=== PATIENT | female | born 1940 | race Caucasian/White ===

== ENCOUNTER 2023-03-20 07:50 | Day surgery (SDC) | payer MEDICARE, OTHER ==
[2023-03-20] MEDS ORDERED: fentaNYL 100 MCG/2 ML SDV ONE (07:53)
[2023-03-20] MEDS ORDERED: Propofol 200 MG/20 ML SDV ONE (07:53)
[2023-03-20] MEDS ORDERED: HYDROmorphone 0.5 MG/0.5 ML Syringe ONE (07:53)
[2023-03-20] MEDS ORDERED: Lactated Ringers 1,000 ML IV SCH (08:00)
[2023-03-20] MEDS ORDERED: Sodium Chloride 0.9% 10 ML Syringe FLUSH PRN (08:00)
[2023-03-20] MEDS ORDERED: Dexamethasone 10 MG/ML SDV IVPUSH ONE (09:05)
[2023-03-20] MEDS ORDERED: Ondansetron 4 MG/2 ML SDV IVPUSH ONE (09:05)
[2023-03-20] MEDS ORDERED: Lidocaine 2% 5 ML SDV ONE (09:05)
[2023-03-20] MEDS ORDERED: Glycopyrrolate 0.2 MG/ML SDV IVPUSH ONE (09:05)
[2023-03-20] MEDS ORDERED: Propofol 200 MG/20 ML SDV IVPUSH ONE (09:05)
[2023-03-20] MEDS ORDERED: Rocuronium 100 MG/10 ML MDV IVPUSH ONE (09:05)
[2023-03-20] MEDS ORDERED: HYDROmorphone 0.5 MG/0.5 ML Syringe IVPUSH ONE (09:05)
[2023-03-20] MEDS ORDERED: Neostigmine Methylsulfate 10 MG/10 ML MDV IVPUSH ONE (09:05)
[2023-03-20] MEDS ORDERED: Bupivacaine 0.5%/EPINEPHrine 1:200,000 30 ML SDV INJECT ONE (09:34)
[2023-03-20 12:10] VITALS: BP 133/68; PULSE 61
== END 2023-03-20 12:40 | disposition home or self-care (01) ==
LOC: LL.SDS 07:50
PROVIDERS: ATTEND Surgery
DX: K80.10 Calculus of gallbladder with chronic cholecystitis without obstruction (principal); I10 Essential (primary) hypertension; E55.9 Vitamin D deficiency, unspecified; Z87.891 Personal history of nicotine dependence; Z79.899 Other long term (current) drug therapy
CPT/HCPCS: 00840; J1100; J1170; J2405; J2704; J2710; J3010; J3490; J7120

== ENCOUNTER 2023-08-21 11:48 | Day surgery (SDC) | payer MEDICARE, OTHER ==
[~2023-08-21 11:48] MED LIST: Midazolam 1 MG/ML 2 ML SDV ONE; Propofol 200 MG/20 ML SDV ONE
[2023-08-21] MEDS ORDERED: Sodium Chloride 0.9% 10 ML Syringe FLUSH PRN (12:00)
[2023-08-21] MEDS: Lactated Ringers 1,000 ML IV SCH (12:35)
[2023-08-21] MEDS ORDERED: Propofol 200 MG/20 ML SDV IVPUSH ONE (13:15)
[2023-08-21 14:10] VITALS: BP 136/74; PULSE 54
== END 2023-08-21 14:30 | disposition home or self-care (01) ==
LOC: LL.SDS 11:48
PROVIDERS: ATTEND Surgery
DX: K57.31 Diverticulosis of large intestine without perforation or abscess with bleeding (principal); K64.8 Other hemorrhoids; K58.1 Irritable bowel syndrome with constipation; I10 Essential (primary) hypertension; E55.9 Vitamin D deficiency, unspecified; K21.9 Gastro-esophageal reflux disease without esophagitis; Z79.899 Other long term (current) drug therapy; Z87.891 Personal history of nicotine dependence
CPT/HCPCS: 00811; J2250; J2704; J7120

== ENCOUNTER → 2024-02-12 | Day surgery (SDC) | payer MEDICARE, OTHER ==
[~2024-02-12] MED LIST changes: -Midazolam 1 MG/ML 2 ML SDV ONE; +Sodium Chloride 0.9% 10 ML Syringe FLUSH PRN
[2024-02-12] MEDS: Lactated Ringers 1,000 ML IV SCH (12:15)
[2024-02-12 14:27] VITALS: BP 124/69; PULSE 60
== END ==
LOC: LL.SDS 11:56
PROVIDERS: ATTEND Surgery
DX: K21.9 Gastro-esophageal reflux disease without esophagitis (principal); K44.9 Diaphragmatic hernia without obstruction or gangrene; I10 Essential (primary) hypertension; Z87.891 Personal history of nicotine dependence; Z79.899 Other long term (current) drug therapy
CPT/HCPCS: J2704; J7120